=== PATIENT | male | born 1935 | race Caucasian/White ===

== ENCOUNTER 2022-08-30 10:49 | Inpatient (IN) | payer MEDICARE, OTHER ==
[~2022-08-30] VITALS: Ht 165.1 cm; Wt 59.0 kg
[2022-08-30] MEDS ORDERED: PIPERACILLIN-TAZOB 3.375GM 100 ML IV ONE (11:00)
[2022-08-30] MEDS ORDERED: ALBUTEROL SULF 2.5 MG/0.5ML(0.5%) NEB SOLN NEB ONE (11:00)
[2022-08-30] MEDS ORDERED: methylPREDNISolone SOD SUCC 125 MG/2 ML VL IV ONE (11:00)
[2022-08-30] MEDS ORDERED: IPRATROPIUM BROM 0.5 MG/2.5ML INH SOL NEB ONE (11:00)
[2022-08-30] MEDS ORDERED: ALBUTEROL MEDNEB 2.5 mg/3ml NEB ONE ×2 (11:13→18:06)
[2022-08-30 11:30] LABS: Basophils # (auto) 0.1 10 ^3/uL (0-0.2); Eosinophils # (auto) 0.1 10 ^3/uL (0-0.8); Mean Corpuscular Hgb Conc. 31.5 g/dL (32.0-36.0); Neutrophils # (auto) 4.6 10 ^3/uL (1.6-8.6); Nucleated Red Blood Cells % 0.1 %
[2022-08-30 11:33] LABS: Basophils % (auto) 0.9 % (0.0-2.0); Eosinophils % (auto) 0.8 % (0.0-7.0); Hematocrit 35.1 % (41.0-53.0); Hemoglobin 11.1 g/dL (13.5-17.5); Lymphocytes # (auto) 1.8 10 ^3/uL (0.4-5.4); Lymphocytes % (auto) 24.9 % (10.0-50.0); Mean Corpuscular Hemoglobin 26.3 pg (28.0-32.0); Mean Corpuscular Volume 83.5 fL (80.0-100.0); Monocytes # (auto) 0.7 10 ^3/uL (0-1.3); Monocytes % (auto) 9.3 % (0.0-12.0); Neutrophils % (auto) 64.1 % (37.0-80.0); Red Blood Cells 4.21 10^6/uL (4.5-5.90); Red Cell Distribution Width 18.2 % (11.8-14.3); White Blood Cell 7.3 10^3/uL (4.4-10.8)
[2022-08-30 11:51] LABS: Albumin 3.7 g/dL (3.4-5.0); BUN/Creatinine Ratio 12.6; Potassium 3.6 mmol/L (3.5-5.1)
[2022-08-30 11:52] LABS: Lactic Acid w/Reflex 2.8 mmol/L (0.4-2.0)
[2022-08-30 12:06] LABS: Bilirubin, Total 2.1 mg/dL (0.2-1.0); Total Protein 6.8 g/dL (6.4-8.2)
[2022-08-30] MEDS ORDERED: ENOXAPARIN SOD 80 MG/0.8ML SYRINGE SC ONE (13:15)
[2022-08-30] MEDS ORDERED: FUROSEMIDE 40 MG/4 ML VIAL IV ONE (13:15)
[2022-08-30] MEDS ORDERED: hydrALAZINE HCL 20 MG/ML VL IV PRN (14:45)
[2022-08-30 17:34] LABS: Urine Bacteria NONE SEEN /hpf (None Seen); Urine Blood Negative /uL (Negative); Urine Hyaline Cast FEW /lpf (0 - 2); Urine Specific Gravity 1.008 (1.001-1.035); Urine WBC <1 /hpf (0 - 3)
[2022-08-30] MEDS: FUROSEMIDE 40 MG/4 ML VIAL IV SCH (18:00)
[2022-08-30 19:02] VITALS: BP 123/72
[2022-08-30] MEDS: ALBUTEROL SULF 2.5 MG/0.5ML(0.5%) NEB SOLN NEB SCH (19:02)
[2022-08-30] MEDS: guaiFENesin-DM 100/10mg/5ml SYR PO PRN (23:09)
[2022-08-30] MEDS ORDERED: APIX2.5T PO (23:26)
[2022-08-31] MEDS ORDERED: ALBUTEROL MEDNEB 2.5 mg/3ml NEB ONE ×2 (06:19→11:15)
[2022-08-31] MEDS: ALBUTEROL SULF 2.5 MG/0.5ML(0.5%) NEB SOLN NEB SCH ×2 (06:21→12:25)
[2022-08-31] MEDS: FUROSEMIDE 40 MG/4 ML VIAL IV SCH ×2 (07:04→19:14)
[2022-08-31] MEDS: guaiFENesin-DM 100/10mg/5ml SYR PO PRN (09:27)
[2022-08-31] MEDS ORDERED: CARV6.25 PO (15:08)
[2022-08-31] MEDS ORDERED: FURO1TAB31 PO (15:08)
[2022-08-31] MEDS ORDERED: ALBUAER3 IN (15:08)
[2022-08-31 17:00] VITALS: BP 123/88
[2022-08-31 17:29] LABS: Anion Gap 10 (5-15); Blood Urea Nitrogen 36 mg/dL (7-18); Calcium 8.9 mg/dL (8.5-10.1); Carbon Dioxide 25 mmol/L (21-32); Chloride 104 mmol/L (98-107); Glucose 104 mg/dL (74-106); Potassium 3.8 mmol/L (3.5-5.1); Sodium 139 mmol/L (136-145)
[2022-08-31] MEDS ORDERED: ALBUTEROL SULF HFA 90MCG INH 200DOSE IN PRN (17:30)
[2022-08-31 17:31] LABS: BUN/Creatinine Ratio 18.5; GFR African American 42 mL/min; GFR Non-African American 35 mL/min
[2022-08-31] MEDS: CARVEDILOL 3.125 MG TAB PO SCH (21:24)
[2022-08-31 22:00] VITALS: BP 133/87
[2022-09-01 05:00] VITALS: BP 131/82
[2022-09-01] MEDS: FUROSEMIDE 40 MG/4 ML VIAL IV SCH (07:30)
[2022-09-01 08:00] VITALS: BP 130/76
[2022-09-01] MEDS: CARVEDILOL 3.125 MG TAB PO SCH (10:02)
[2022-09-01 12:00] VITALS: BP 111/72
[2022-09-01 13:06] LABS: Hepatitis C Antibody Negative (Negative)
[2022-09-01 13:52] VITALS: BP 112/73
== END 2022-09-01 15:51 | disposition hospice, home (50) | DRG 177 ==
LOC: ER 10:49 → EDBD 10:49 → TELE 14:41 → TELE-EAST 08-31 16:35
PROVIDERS: ADMIT Internal Medicine; ATTEND Internal Medicine
DX: U07.1 COVID-19 (principal); I50.43 Acute on chronic combined systolic (congestive) and diastolic (congestive) heart failure; J96.21 Acute and chronic respiratory failure with hypoxia; I11.0 Hypertensive heart disease with heart failure; H91.90 Unspecified hearing loss, unspecified ear; I25.10 Atherosclerotic heart disease of native coronary artery without angina pectoris; I25.5 Ischemic cardiomyopathy; I25.2 Old myocardial infarction
CPT/HCPCS: 36415; 71045; 80048; 80053; 81001; 83605; 83880; 84484; 85025; 86803; 87040; 87340; 87426; 93005; 93306; 94640; 96365; 96366; 96375; 99291; G0378; J2543